=== PATIENT | female | born 1940 | race Caucasian/White ===

== ENCOUNTER 2021-08-28 14:44 | Emergency (ER) | payer BC ==
[~2021-08-28] VITALS: Ht 170.2 cm; Wt 61.0 kg
[2021-08-28 14:58] VITALS: BP 154/82
[2021-08-28] MEDS ORDERED: ACETAMINOPHEN 325MG TABLET PO ONE (15:45)
== END 2021-08-28 18:22 | disposition home or self-care (01) ==
LOC: ER 14:58
DX: S00.83XA Contusion of other part of head, initial encounter (principal); M54.2 Cervicalgia; Z88.2 Allergy status to sulfonamides; W03.XXXA Other fall on same level due to collision with another person, initial encounter; Y93.89 Activity, other specified; Y92.520 Airport as the place of occurrence of the external cause; Y99.8 Other external cause status
CPT/HCPCS: 99284